=== PATIENT | female | born 1965 | race African-American/Black ===

== ENCOUNTER 2018-05-25 10:44 | Outpatient (CLI) | payer OTHER | END 2018-05-25 10:45 | disposition home or self-care (01) | LOC: LAB 10:44 | PROVIDERS: ATTEND Otolaryngology | DX: E06.9 Thyroiditis, unspecified (principal); E78.00 Pure hypercholesterolemia, unspecified; I10 Essential (primary) hypertension; J45.909 Unspecified asthma, uncomplicated; Z90.49 Acquired absence of other specified parts of digestive tract | CPT/HCPCS: 36415; 84436; 84443; 84479 ==